=== PATIENT | female | born 1975 | race Caucasian/White ===

== ENCOUNTER → 2017-02-06 | Day surgery (SDC) | payer OTHER ==
--- NOTE | 2017-02-07 12:06 | OP ---
DATE OF OPERATION: 02/06/2017 PREOPERATIVE DIAGNOSIS: Abnormal mammography. POSTOPERATIVE DIAGNOSIS: Abnormal mammography. PROCEDURE: Right stereotactic needle biopsy with clip x2. SURGEON: Tita Irene MD ANESTHESIA: Local. COMPLICATIONS: None. This is a sterile procedure. INDICATIONS: The patient had presented with a screening mammogram that noted clustering microcalcifications, multiple areas of microcalcifications diffusely in both breasts. Most of them appeared to be microcalcifications. There was 2 clustering that I noted in the posterior right slightly inner breast. On the left, the area that the radiologist mentioned in the upper left breast that was clustering appeared nothing different than all of the other calcifications. My recommendation was to put her on a stereotactic table and see what areas should be biopsied. PROCEDURE IN DETAIL: The patient was brought to [facility] [place] and laid prone on the [place] table. Using the medial approach, the calcifications in the right breast were identified. A sterile prep was obtained. A target was chosen. There was a positive stroke margin. Using Betadine with 1% lidocaine, several cores from this area were retrieved. Despite several attempts to try to do a specimen radiograph, it was difficult to see whether they were truly calcifications in it or not; therefore, I retargeted, and this time I got a target that was more posterior and superior to where I had initially taken samples. Therefore, I took another , target was chosen again, and using Betadine 1% lidocaine, cores were taken from this 2nd area. The 2nd site was more posterior. Cores at this time showed calcifications within them. These were handled using calcification protocol. A T-shaped clip was deployed in the posterior area, and I went back and put back a bar-shaped clip in site 1, which is inferior and anterior. Hemostasis was assured with direct pressure. The incision was closed with Steri-Strips. She tolerated the procedure well. I re-reviewed the mammogram on the left side, and given all these calcifications really have a similar morphology, my decision is to go ahead and await the pathology from the right and then decide what to do with the left. If the right is benign, I think she can have a short-term follow up mammogram on the left and then see me back after that. She understands the plan. This was explained to her and her through a dairy nutrition consultant to ensure that they understand the plan. TITA IRENE M.D. [id number]
--- NOTE | 2017-02-08 12:20 | PATH ---
Surgical Pathology Report Patient Name: GABRIELA WOO [facility]. Rec. #: [id number] /Age/Gender: 1975 (Age: 41) / F Account: [id number] Location: [facility] [place] Taken: 02/06/2017 Received: 02/06/2017 Reported: 02/08/2017 Physicians: Tita Jamil M.D. Specimen(s) Received A: RIGHT BREAST SPECIMEN - SITE 1- WITHOUT CALCIFICATIONS B: RIGHT BREAST SPECIMEN -SITE 2- POSTERIOR WITH CALCIFICATIONS C: RIGHT BREAST SPECIMEN -SITE 2- POSTERIOR WITHOUT CALCIFICATIONS Clinical History LARS Microcalcifications, suspicious 2 sites Final Diagnosis A. BREAST, RIGHT, SITE #1, WITHOUT CALCIFICATIONS, STEREOTACTIC BIOPSY: BENIGN BREAST TISSUE SHOWING FIBROCYSTIC CHANGES INCLUDING MICROCYST FORMATION, USUAL DUCTAL HYPERPLASIA (UDH) AND ADENOSIS. B. BREAST, RIGHT, SITE #2 POSTERIOR, WITH CALCIFICATIONS, STEREOTACTIC BIOPSY: BENIGN BREAST TISSUE SHOWING FIBROCYSTIC CHANGES INCLUDING CYSTIC APOCRINE METAPLASIA AND USUAL DUCTAL HYPERPLASIA (UDH). CALCIFICATIONS ARE PRESENT IN ASSOCIATION WITH CYST CONTENTS. C. BREAST, RIGHT, SITE #2 POSTERIOR, WITHOUT CALCIFICATIONS, STEREOTACTIC BIOPSY: BENIGN BREAST TISSUE SHOWING USUAL DUCTAL HYPERPLASIA (UDH). Electronically Signed Manuela Fung M.D. Gross Description A. Received in formalin, labeled "right breast specimen site #1 without calcifications" are multiple fragments of villalba-pink tissue 2.3 x 2.2 x 0.3 cm in aggregate size. Submitted entirely in one cassette. Time to formalin fixation: 3 minutes Total formalin fixation time: Approximately 7 hours. B. Received in formalin, labeled "right breast specimen site #2 posterior with calcifications" are five cores of villalba-yellow tissue ranging from 0.5-0 1.5 cm in length and averaging in 0.3 cm in diameter. Submitted entirely in one cassette. Time to formalin fixation: 3 minutes Total formalin fixation time: Approximately 7 hours. C. Received in formalin, labeled "right breast specimen site #2 posterior without calcifications" are four cores of villalba-yellow tissue ranging from 1-1.5 cm in length and averaging 0.3 cm in diameter this. Submitted entirely in one cassette. Time to formalin fixation: 3 minutes Total formalin fixation time: Approximately 7 hours. AF/02/06/2017 final/02/06/2017
== END | disposition home or self-care (01) ==
LOC: FMAMMOTONE 09:33
PROVIDERS: ATTEND Surgery
PROC: 0HBT3ZX Excision of Right Breast, Percutaneous Approach, Diagnostic (ICD-10-PCS; principal; 2017-02-06)
DX: N60.21 Fibroadenosis of right breast (principal); R92.1 Mammographic calcification found on diagnostic imaging of breast; N60.81 Other benign mammary dysplasias of right breast; N60.11 Diffuse cystic mastopathy of right breast; N64.89 Other specified disorders of breast
CPT/HCPCS: 19081; 19082; 87899; 88305-TC; A4648

== ENCOUNTER 2017-02-25 20:51 | Emergency (ER) | payer OTHER ==
[2017-02-25 21:38] VITALS: BP 157/88; PULSE 77; TEMP 97.7; BMI 26.7
--- NOTE | 2017-02-25 21:49 | PDOC ---
History of Present Illness - General Chief Complaint: Blood Pressure Problem Stated Complaint: BLOOD PRESSURE Time Seen by Provider: 02/25/17 21:46 - History of Present Illness Initial Comments: 02/25/17 22:15 41F w/ hx of HTN presenting with "I feel like my BP is high." Pt states that she thinks her BP is high because she has been having some L sided hearing difficulty on and off for the past week and a pressure sensation in her throat for the past 2 months. She denies tinnitus, ear pain, dsyphagia, odynophagia. She endorses a feeling that she does "not absorb air well" but does not feel SOB. 02/25/17 22:42 Past History - Past Medical History Allergies/Adverse Reactions: Allergies Allergy/AdvReac Type Severity Reaction Status Date / Time No Known Allergies Allergy Verified 02/25/17 21:32 Home Medications: Ambulatory Orders Lisinopril 10 mg PO DAILY 02/25/17 Meclizine HCl 25 mg PO Q6H #20 tablet 02/25/17 HTN: Yes Psychiatric Problems: Yes (Anxiety) Comment:: 02/25/17 22:19 PMH: HTN PSH: none Meds: lisinopril 10mg qd Allergies: NKDA Fam Hx: HTN in mother Social Hx: denies toxic habits 02/25/17 22:42 - Psycho/Social/Smoking Cessation Hx Suicidal Ideation: No Smoking History: Never smoked Information on smoking cessation initiated: No Hx Alcohol Use: No Drug/Substance Use Hx: No Substance Use Type: None Review of Systems - Review of Systems Comments:: 02/25/17 22:20 GENERAL: No fever, chills, night sweats, or weakness. HEAD, EYES, EARS, NOSE AND THROAT: No change in vision, ear pain, or sore throat CARDIOVASCULAR: No chest pain or palpitations RESPIRATORY: No cough, wheezing, or hemoptysis. GASTROINTESTINAL: + nausea, no vomiting, diarrhea, + constipation, no blood in the stool. GENITOURINARY: No dysuria, frequency, or urgency MUSCULOSKELETAL: No joint or muscle swelling or pain. SKIN: No rashes or pruritis ENDOCRINE: No increased thirst. No abnormal weight change NEUROLOGIC: No headache, + dizziness, no loss of consciousness, or change in strength/sensation. 02/25/17 22:42 *Physical Exam - Vital Signs Last Vital Signs Temp Pulse Resp BP Pulse Ox 97.7 F 77 20 157/88 100 02/25/17 21:34 02/25/17 21:34 02/25/17 21:34 02/25/17 21:34 02/25/17 21:34 - Physical Exam Comments: 02/25/17 22:21 GENERAL: Awake, alert, and fully oriented, in no acute distress HEAD: normocephalic, atraumatic HEENT: PERRLA, EOMI, left ear has clear effusion. Oropharynx is not erythematous and is without exudates. NECK: Normal ROM, supple, no lymphadenopathy, JVD, or masses HEART: Regular rate and rhythm, normal S1 and S2, no murmurs, rubs or gallops, peripheral pulses normal and equal bilaterally. LUNGS: CTAB, no wheezing, no rales ABDOMEN: Soft, nontender, nondistended, normoactive bowel sounds. No guarding, no rebound. No masses EXTREMITIES: Normal range of motion, no edema. SKIN: Warm, dry, no rashes or lesions noted. NEUROLOGICAL: Cranial nerves II through XII grossly intact. Normal speech, normal gait, no focal sensorimotor deficits 02/25/17 23:09 Medical Decision Making - Medical Decision Making 02/25/17 22:22 02/25/17 22:42 02/25/17 22:43 41F w/ hx of HTN presenting with subjective feeling of high BP along with subacute L ear temporary hearing difficulty and "throat pressure." HEENT exam shows L ear clear effusion which explains hearing difficulty and dizziness. 02/25/17 23:09 *DC/Admit/Observation/Transfer Diagnosis at time of Disposition: Middle ear effusion Qualifiers: Laterality: left Qualified Code(s): H65.92 - Unspecified nonsuppurative otitis media, left ear - Discharge Dispostion Admit: No - Prescriptions Prescriptions: Meclizine HCl 25 mg PO Q6H #20 tablet - Referrals Referrals: Elizabeth Stoddard [Primary Care Provider] - - Patient Instructions Printed Discharge Instructions: DI for High Blood Pressure, DI for Vertigo Additional Instructions: Your symptoms can be explained by an ear effusion in your left ear. Please take meclizine as directed to resolve your dizziness and hearing difficulty. Please see your PMD in the next few days to adjust your BP medications. Print Language: OCCITAN - Attestations Physician Attestion: 02/25/17 22:59 I, Dr. James Perez, attest that this document has been prepared under my direction and personally reviewed by me in its entirety. I further attest, that it accurately reflects all work, treatment, procedures and medical decision -making performed by me.
--- NOTE | 2017-02-25 22:01 | PDOC ---
Attending Attestation - Resident Resident Name: AnaJames - ED Attending Attestation I have performed the following: I have examined & evaluated the patient, The case was reviewed & discussed with the resident, I agree w/resident's findings & plan, Exceptions are as noted - HPI HPI: 41 yo F history HTN presents with L ear pain, dizziness, and elevated BP. She states that she takes lisinopril for her BP, has not skipped any doses. However , she has had pain to the L ear intermittently for the past few weeks, associated with dizziness, and she expresses concern that it might be related to her blood pressure. Denies LOVELL, weakness, numbness. No cp, SOB. - Physicial Exam PE: GENERAL: Awake, alert, and fully oriented, in no acute distress HEAD: No signs of trauma EYES: PERRLA, EOMI, sclera anicteric, conjunctiva clear ENT: Auricles normal inspection, hearing grossly normal. +Clear effusion to L TM. Nares patent, oropharynx clear without exudates. Moist mucosa NECK: Normal ROM, supple, no lymphadenopathy, JVD, or masses LUNGS: Breath sounds equal, clear to auscultation bilaterally. No wheezes, and no crackles HEART: Regular rate and rhythm, normal S1 and S2, no murmurs, rubs or gallops ABDOMEN: Soft, nontender, normoactive bowel sounds. No guarding, no rebound. No masses EXTREMITIES: Normal range of motion, no edema. No clubbing or cyanosis. No cords, erythema, or tenderness NEUROLOGICAL: Cranial nerves II through XII grossly intact. Normal speech, normal gait SKIN: Warm, Dry, normal turgor, no rashes or lesions noted. - Medical Decision Making Suspect she has vertiginous symptoms due to clear TM effusion. Will treat as needed with meclizine. No neuro deficits. BP mildly elevated, but no signs of end-organ damage. Recommended f/u with PMD for repeat BP, possible med adjustment.
== END 2017-02-25 23:13 | disposition home or self-care (01) ==
LOC: JER 20:51
DX: H65.92 Unspecified nonsuppurative otitis media, left ear (principal); I10 Essential (primary) hypertension; F41.9 Anxiety disorder, unspecified
CPT/HCPCS: 99282-25